=== PATIENT | female | born 1995 | race Caucasian/White ===

== ENCOUNTER 2017-09-15 21:49 | Emergency (ER) | payer BC ==
--- NOTE | 2017-09-15 22:51 | EDM.PDOC ---
ED HPI GENERAL MEDICAL PROBLEM - General Chief Complaint: Lower Extremity Injury/Pain Stated Complaint: ANKLE INJURY Time Seen by Provider: 09/15/17 22:00 Source of Information: Reports: Patient History Limitations: Reports: No Limitations - History of Present Illness INITIAL COMMENTS - FREE TEXT/NARRATIVE: The patient presents with right knee pain. She was wrestling with her cousin and she kicked at him and he caught her leg and her right knee gave out. She had sever pain right away and she thought her patella was off to the side. It is in place now. She could not stand on it. She has no other injuries. Onset: Sudden Duration: Hour(s): Location: Reports: Lower Extremity, Right (Knee) Quality: Reports: Sharp Severity: Moderate Improves with: Reports: Immobilization Worsens with: Reports: Movement Associated Symptoms: Reports: No Other Symptoms Right Knee Pain Score (Numeric/FACES): 4 - Related Data Allergies Allergy/AdvReac Type Severity Reaction Status Date / Time No Known Allergies Allergy Verified 09/15/17 21:52 Home Meds: Home Meds . [No Known Home Meds] 09/15/17 [History] Past Medical History Musculoskeletal History: Reports: Fracture Other Musculoskeletal History: right foot Endocrine/Metabolic History: Reports: Obesity/BMI 30+ - Past Surgical History GI Surgical History: Reports: Appendectomy Social & Family History - Family History Family Medical History: Noncontributory - Tobacco Use Smoking Status *Q: Never Smoker - Caffeine Use Caffeine Use: Reports: Energy Drinks - Recreational Drug Use Recreational Drug Use: No Review of Systems - Review of Systems Review Of Systems: See Below Constitutional: Reports: No Symptoms Eyes: Reports: No Symptoms Ears: Reports: No Symptoms Nose: Reports: No Symptoms Mouth/Throat: Reports: No Symptoms Respiratory: Reports: No Symptoms Cardiovascular: Reports: No Symptoms GI/Abdominal: Reports: No Symptoms Genitourinary: Reports: No Symptoms Musculoskeletal: Reports: Other (Right knee pain) ED EXAM, GENERAL - Physical Exam Exam: See Below Exam Limited By: No Limitations General Appearance: Alert, No Apparent Distress Ears: Normal External Exam Nose: Normal Inspection Head: Atraumatic, Normocephalic Neck: Normal Inspection Respiratory/Chest: No Respiratory Distress Extremities: Other (Moderate pain upon palpation to the lateral and medial knee. Good sensation and pulses distally. The patient can lift her leg off the bed.) Course - Vital Signs Last Recorded V/S: Last Vital Signs Temp 98.1 F 09/15/17 21:50 Pulse 97 09/15/17 21:50 Resp 18 09/15/17 21:50 BP 140/87 09/15/17 21:50 Pulse Ox 99 09/15/17 21:50 - Orders/Labs/Meds Orders: Active Orders 24 hr Category Date Time Status Knee Min 4V Rt [CR] Stat Exams 09/15/17 22:21 Taken - Re-Assessments/Exams Free Text/Narrative Re-Assessment/Exam: 09/15/17 22:51 I ordered an x-ray of her knee. The x-ray looks good. 09/15/17 23:08 Her ligaments did feel stable. I will get he an alina wrap and crutches and something for pain. Departure - Departure Time of Disposition: 23:10 Disposition: Home, Self-Care 01 Condition: Good Clinical Impression: Closed dislocation of right patella Qualifiers: Encounter type: initial encounter Qualified Code(s): S83.004A - Unspecified dislocation of right patella, initial encounter - Discharge Information Forms: ED Department Discharge Additional Instructions: Ice your knee for 15 minutes 3 times per day for 2 days. Use the crutches and wear the alina wrap for support. Take motrin or aleve for pain and if that does not work you can use hydrocodone. Call an orthopedic surgeon in [place] and set that up when you get home. Please return if you are worse. - My Orders Last 24 Hours: My Active Orders 09/15/17 22:21 Knee Min 4V Rt [CR] Stat - Assessment/Plan Last 24 Hours: My Active Orders 09/15/17 22:21 Knee Min 4V Rt [CR] Stat
[2017-09-15] MEDS ORDERED: Acetaminophen/HYDROcodone 325-5 MG Tab PO ONE (23:26)
--- NOTE | 2017-09-16 08:33 | CR ---
Right knee: Four views of the right knee were obtained. Comparison: No previous study. Medial and lateral joint spaces are maintained in height. No fracture, dislocation or other bony abnormality is seen. Impression: 1. No abnormality is identified on right knee exam. Diagnostic code #1
== END 2017-09-15 23:36 | disposition home or self-care (01) ==
LOC: JD.ED 21:49
DX: S83.004A Unspecified dislocation of right patella, initial encounter (principal); W50.0XXA Accidental hit or strike by another person, initial encounter; Y93.72 Activity, wrestling
CPT/HCPCS: 73564; 99283; A9270